=== PATIENT | female | born 1970 | race Caucasian/White ===

== ENCOUNTER 2025-07-17 20:01 | Inpatient (IN) | payer MEDICAID ==
[~2025-07-17] VITALS: Ht 167.6 cm; Wt 81.8 kg
[~2025-07-17 20:01] MED LIST: CYCL-1 PO; HYDR-4383 PO
--- NOTE | 2025-07-17 20:12 | Physician Documentation ---
History of Present Illness ~ Stated Complaint: GI CONSULT Time Seen by MD: 20:03 Primary Medical Doctor: DR. CHATMAN HPI Patient presents to the emergency room as a transfer from [facility] for presumed GI bleed. She had outpatient labs drawn which showed that has significant anemia therefore was referred to the emergency room. She received 2 units of blood at sending facility. She had denies any black stools but has had some red blood while wiping over the past month. She reports history of ulcers. 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 No significant history of alcohol. Medication Reconciliation Allergies: Coded Allergies: NSAIDS (Non-Steroidal Anti-Inflamma (Verified Allergy, Unknown, PT HAD WEIGHT LOSS SURGERY, 11/17/17) Penicillins (Verified Allergy, Unknown, 11/17/17) Scheduled Hydrocodone/Acetaminophen ([place] 5-325 Tablet), 1 TAB PO TID PRN Scheduled PRN Cyclobenzaprine* (Cyclobenzaprine*), 1 TABLET PO Q8H PRN for muscle spasms Past Medical History Past Medical History: Pancreatitis, *RENAL/*, Chronic Pain, Chronic Back Pain Past Surgical History: cholecystectomy, , gastric bypass, orthopedic surgeries Alcohol Use: Rarely Drug Use: none Lives with: Family Lives In: Home Review of Systems ROS All review of systems negative except as per HPI Physical Exam Physical Exam General: Patient is awake, alert, oriented x4 in no acute distress Head: Normocephalic and atraumatic. Eyes: Conjunctival normal. EOMI. PERRL. ENT: Mucous membranes moist. Neck: Supple, trachea is midline. Chest: Clear to auscultation bilaterally without rales, rhonchi, or wheezes. There is no accessory muscle use or retractions. Cardiac: RRR without murmurs, gallops, or rubs. Abd: Soft, nondistended, nontender, with normoactive bowel sounds. No guarding, rebound, or rigidity. Progress Results/Orders Results/Orders Orders - KAI SUTTON MD Cbc/Diff (07/17/25 20:02) Saline Lock (07/17/25 20:02) Type And Screen (07/17/25 20:02) Pantoprazole 40mg/Ns 100ml Bag (Protonix (07/17/25 21:00) Page Hospitalist (07/17/25 20:12) Fill Out Med Reconciliation (07/17/25 20:12) Man Diff (07/17/25 20:15) Completed Orders - KAI SUTTON MD CMP (07/17/25 20:02) Vital Signs 07/17/25 07/17/25 07/17/25 20:03 20:17 20:22 Temp 98.1 98.1 Pulse 80 80 Resp 13 12 B/P (MAP) 108/61 108/61 (77) Pulse Ox 98 96 O2 Flow Rate 0 0 Laboratory Tests Test 07/17/25 20:15 White Blood Count 5.5 Red Blood Count 4.17 L Hemoglobin 7.4 L Hematocrit 24.6 L Mean Corpuscular Volume 58.9 L Mean Corpuscular Hemoglobin 17.8 L Mean Corpuscular Hemoglobin Concent 30.2 L Red Cell Distribution Width 29.3 H Platelet Count 364 Mean Platelet Volume 8.6 Neutrophils (%) (Auto) Lymphocytes (%) (Auto) Monocytes (%) (Auto) Eosinophils (%) (Auto) Basophils (%) (Auto) Neutrophils # (Auto) Lymphocytes # (Auto) Monocytes # (Auto) Eosinophils # (Auto) Basophils # (Auto) CBC Comment Basophilic Stippling Sodium Level 143 Potassium Level 4.1 Chloride Level 108 H Carbon Dioxide Level 29.4 Anion Gap 6 L Blood Urea Nitrogen 10 Creatinine 0.62 Estimated GFR/1.73 m2 > 90 BUN/Creatinine Ratio 16.1 Glucose Level 90 Calcium Level 8.4 L Total Bilirubin 1.8 H Aspartate Amino Transf (AST/SGOT) 20 Alanine Aminotransferase (ALT/SGPT) 20 Alkaline Phosphatase 98 Total Protein 6.5 Albumin 3.2 L Globulin 3.3 Albumin/Globulin Ratio 1.0 L Chemistry Comments Medical Decision Making Additional information obtaine: old records Findings Patient presents to the emergency room as a transfer for possible GI bleed. Repeat hemoglobin that has reassuring compared to previous with 2 units transfused. Hemoccult negative. Diff Dx GI Bleed:Consideration: Include: AE fistula, Angiodysplasia, Bleeding diathesis, Blood loss anemia, Carcinoma, Diverticulosis, Diverticulitis, Eso phageal varicies, Esophagitis, Gastritis, Gastroenteritis, Inflammatory BD, Rajni-Ramsey syndrome, Meckel's diverticulum, PUD, Other Departure Admitted to Inpatient Unit: yes, to hospitalist Impression: Primary Impression: Anemia Referrals: NO PRIMARY CARE PROVIDER (PCP) Signature Scribe Signature: No scribe Attestation: The note accurately reflects work and decisions made by me.Kai Sutton MD 07/17/25 21:52 KAI SUTTON MD Jul 17, 2025 20:12
[2025-07-17 20:31] LABS: MEAN PLATELET VOLUME 8.6 FL (7.4-10.4); RED CELL DISTRIBUTION WIDTH 29.3 % (11.5-14.5)
[2025-07-17 20:40] LABS: CREATININE 0.62 MG/DL (0.40-0.90); TOTAL CARBON DIOXIDE 29.4 MMOL/L (24-32); eCRCL 95 ML/MIN; eGFR > 90 ML/MIN
[2025-07-17] MEDS: pantoprazole 40MG/NS 100ML BAG 100 ML IV SCH (21:25)
[2025-07-17] MEDS ORDERED: magnesium sulf-water 2g/50mL 50 ML IV PRN (21:40)
[2025-07-17] MEDS ORDERED: potassium Cl 40MEQ/1/2NS 520ml 520 ML IV PRN (21:40)
[2025-07-17] MEDS ORDERED: magnesium Cl slow-release 64mg tablet PO PRN (21:40)
[2025-07-17] MEDS ORDERED: magnesium sulf-water 4G/100mL 100 ML IV PRN (21:40)
[2025-07-17] MEDS ORDERED: mag hydrox/Alum hydrox/simeth 30ml oral suspension PO PRN (21:40)
[2025-07-17] MEDS ORDERED: potassium Cl 20 mEq SR tablet PO PRN ×2 (21:40)
[2025-07-17] MEDS ORDERED: magnesium hydroxide 30ml (MOM) UD suspension PO PRN (21:40)
--- NOTE | 2025-07-17 22:01 | HISTORY AND PHYSICAL-Residence ---
History & Physical Providers to CC Resident Creating Document: TOÑOLISSETTEI, WILLIE ~ History of Present Illness Primary Medical Doctor: DR. CHATMAN Reason for Admit\Complaint: GI bleed History of Present Illness 54-year-old female with history of TIA and multiple bleeding ulcers around 10 years ago was transferred from [facility] due to GI bleed. Patient states that she finds red blood on wiping, which has been on and off since a month. She denies rectal pain and hemorrhoids. She is unsure about dark and tarry stool. She states that she thinks it has been on and off dark. She denies alcohol use and over the counter NSAIDs. She never had a colonoscopy. She has a history of bleeding ulcers about 10 years ago when she had an endoscopy and cauterization of the ulcers. She was started on aspirin due to history of TIA, but stopped taking it after getting ulcers. She reports having occasional heartburn, nausea, bloating and decreased appetite. She endorses having occasional palpitations. She denies vomiting, hematemesis, constipation, abdominal pain. She has a history of Rambo-en-Y for weight loss. She denies chest pain, shortness of breath, fever, chills, burning micturition, frequency, urgency. She had a hemoglobin of 5.9 at [facility] and was transfused 2 units of PRBC. She was transferred here for further evaluation. Her PCP is Dr. Nuñez in [facility] She lives with her at home She can ambulate independently Allergies: Coded Allergies: NSAIDS (Non-Steroidal Anti-Inflamma (Verified Allergy, Unknown, PT HAD WEIGHT LOSS SURGERY, 11/17/17) Penicillins (Verified Allergy, Unknown, 11/17/17) Home Medications Home Medications Active [place] 5-325 Tablet (Hydrocodone/Acetaminophen) 1 Each Tablet 1 Tab PO TID PRN 3 Days Cyclobenzaprine* (Cyclobenzaprine HCl) 10 Mg Tablet 1 Tablet PO Q8H PRN Past Medical History Past Medical History TIA Pancreatitis History of multiple bleeding ulcers-underwent endoscopy and cauterization 10 years ago Past Surgical History Surgical History Comment Gastric bypass surgery for weight loss ( Rambo-en-Y ) Orthopedic surgeries Cholecystectomy Past Social History Social History Comment She quit smoking 26 years ago, she used to smoke half pack a day for 5 years She denies alcohol and recreational drug use Her PCP is Dr. uNñez in [facility] She lives with her at home She can ambulate independently Alcohol Use: Rarely Drug Use: None Lives with: Family Lives In: Home ROS ROS Constitutional: Reports lightheadedness, No fever, chills, weight gain or loss Eyes: No pain, erythema, discharge, blurring of vision ENT: No sore throat, epistaxis, tinnitus Cardiovascular: Reports palpitations, No chest pain, syncope, lower extremity edema, paroxysmal nocturnal dyspnea Respiratory: No Shortness of breath and cough, No hemoptysis. Gastrointestinal: Reports hematochezia, patient is unsure about melena, No Abdominal pain, vomiting,nausea,constipation,diarrhea. Normal appetite. Musculoskeletal: No Swelling, pain in bilateral lower legs. Integumentary: No change in skin, hair, nails. No swelling, bruising, abrasions Neurologic: No headache, neck pain, numbness or tingling of the extremities, Psychiatric: No delusions, depression, loss of interest in normal activity or change in sleep pattern, hallucinations, suicidal ideations Endocrine: Reports weakness. No polydipsia, polyuria, change in appetite, heat or cold intolerance, sweating, dry skin Hematological: No bleeding, petechiae, bruising Allergies: No asthma or urticaria Exam Vitals: Vital Signs Date Time Temp Pulse Resp B/P (MAP) Pulse Ox O2 Delivery O2 Flow Rate FiO2 07/17/25 20:22 07/17/25 20:17 98.1 80 12 96 0 General: Awake , alert, and oriented x4, resting comfortably in the bed, in no acute distress HEENT: Atraumatic, normocephalic, EOMI, anicteric sclera ; pale conjunctiva Neck: Trachea midline. Supple, full range of motion, no JVD Cardiac: Regular rhythm, regular rate with no murmurs all over the precordium. Respiratory: Equal breath sounds bilaterally, no tachypnea, no wheezing ,rub or rales, Chest wall is symmetric and without deformity. Gastrointestinal: Abdomen symmetric, non-distended, soft, non-tender, normal bowel sounds x4 quadrant, normoactive, no hepatosplenomegaly Musculoskeletal: No pedal edema, no cyanosis Neurological: Speech is clear, alert, and oriented x 4. Power 5/5 in all extremities, no sensory deficit, deep tendon reflexes normal, cerebellar intact. Cranial nerves II-XII intact. Skin: Warm and dry Diagnostic Data Last Recorded Lab Results: 07/17/25201407/17/252014 Advance Care Planning Advanced Care plannin - 30 Minutes (Full code) Additional Plan Upper vs lower GI bleed Microcytic hypochromic anemia Differential diagnosis: Peptic ulcer, external hemorrhoids, anal fissure Patient denies use of [id number] pain meds and alcohol She has a history of bleeding ulcers around 10 years ago, underwent endoscopy and cauterization Patient never had a colonoscopy She is hemodynamically stable H&H-7.4/24.6 Hb at [facility] was 5.9, Patient received 2 units of PRBC at [facility] Stool occult test was negative Follow up repeat stool occult blood test Follow up iron profile On Protonix drip H&H q.4h Transfuse PRBC if Hb < 7 NPO after midnight We will consult GI in the a.m. History of TIA Patient does not take aspirin, stopped taking it after previous history of ulcers Elevated total bilirubin Total bilirubin is 1.8 Direct bilirubin is 0.3 Alkaline phosphatase is normal Follow up haptoglobin and LDH I spent a total of 18 minutes reviewing various resuscitative measures/ACP with the patient. The patient decided to be full code. Code status: Full code DVT prophylaxis: SCD GI prophylaxis: Protonix drip Pain management: Tylenol p.r.n. Diet/nutrition: Regular diet, NPO after midnight Prognosis: Guarded Disposition: Monitor H&H, NPO after midnight, awaiting GI, Dr. Dominguez recommendations, PT eval and DC plan Resident attestation: The patient note has been reviewed and supervised by senior residents PGY-2/ PGY-3. Patient was seen, examined and discussed with attending physician, Dr. Alda Lundberg MD Internal Medicine resident, PGY-1 Date of Service: Jul 17, 2025 Billing Provider: FRANK SINGER MD Common Visit Codes: [id number] INP/OBS CARE (HIGH) Assessment/Plan Assessment Evaluated th e patient with the help of residents. Discussed the case with them Reviewed notes by Dr.Preeti DE Agree with his assessments and plans I also reviewed patients labs,radiology and notes from other providers. No additional points now . Will continue the present care. DOT LUNDBERG, RES Jul 17, 2025 22:01 FRANK SINGER MD Jul 18, 2025 05:04
[2025-07-17 22:10] LABS: APTT 23 SECONDS (22-32); INR 1.0 INR
[2025-07-17] MEDS ORDERED: NO HOME MEDS (22:20)
[2025-07-17 22:22] LABS: PHOSPHORUS 4.6 MG/DL (2.3-4.5); PRO BRAIN NATRIURETIC PEPTIDE 150 PG/ML (0-125)
[2025-07-17 22:36] LABS: OCCULT BLOOD STOOL NEGATIVE (Neg)
--- NOTE | 2025-07-17 23:02 | ELECTROCARDIOGRAPH REPORT ---
[facility] Test Date: 2025-07-17 Test Time: 22:59:23 Pat Name: ERLIN CORDERO Department: [facility] Patient ID: [id number] Room: [place] [id number] Gender: F Sales Service Assistant: : 1970 Requested By: DOT LUNDBERG Order Number: [id number] Reading MD: Measurements Intervals Justin Rate: 81 P: 69 MI: 153 QRS: -7 QRSD: 104 T: 69 QT: 408 QTc: 474 Interpretive Statements Sinus rhythm Please click the below link to view image of tracing.
[2025-07-17] MEDS: PERFLUTREN PROTEIN-A MICROSPHR (Optison) 0.22 MG/ML 3ML VIAL IV ONE (23:20)
[2025-07-18] VITALS (12 sets, daily range): BP systolic 90–120; BP diastolic 42–69; PULSE 61–81; RESP 11–16; TEMP 97.7–98.5; O2SAT 95–100
[2025-07-18 00:28] LABS: LEUKOCYTE ESTERASE ,URINE NEGATIVE (Neg); NITRITES, URINE NEGATIVE (Neg); OCCULT BLOOD,URINE NEGATIVE (Neg)
[2025-07-18 00:54] LABS: UA COLLECTION TYPE CLN CATCH MIDSTREAM
[2025-07-18 01:06] LABS: % IRON SATURATION 25 % (11-46)
[2025-07-18 02:24] LABS: EOSINOPHILS % (MANUAL) 1.0 % (0-6); LYMPHOCYTES % (MANUAL) 34.0 % (21-51); MONOCYTES % (MANUAL) 7.0 % (2-12); NEUTROPHILS % (MANUAL) 58.0 % (42-75); PLATELET ESTIMATE NORMAL
[2025-07-18 02:26] LABS: ELLIPTOCYTES FEW
[2025-07-18 05:12] LABS: CHOL/HDL RATIO 2.3 (0.00-4.99); CREATININE 0.58 MG/DL (0.40-0.90); LACTATE DEHYDROGENASE 167 U/L (81-234); LDL CHOLESTEROL 71 MG/DL (50-100); TOTAL CARBON DIOXIDE 25.8 MMOL/L (24-32); eCRCL 101 ML/MIN; eGFR > 90 ML/MIN
[2025-07-18 05:24] LABS: MEAN PLATELET VOLUME 8.7 FL (7.4-10.4); RED CELL DISTRIBUTION WIDTH 27.5 % (11.5-14.5)
[2025-07-18 07:10] LABS: EOSINOPHILS % (MANUAL) 4.0 % (0-6); LYMPHOCYTES % (MANUAL) 26.0 % (21-51); MONOCYTES % (MANUAL) 6.0 % (2-12); NEUTROPHILS % (MANUAL) 64.0 % (42-75); PLATELET ESTIMATE NORMAL
[2025-07-18 07:11] LABS: ELLIPTOCYTES FEW; LARGE PLATELETS MODERATE
[2025-07-18] MEDS: K and/or MAG REPLACEMENT MC SCH (07:29)
[2025-07-18] MEDS: docusate sod 100mg capsule PO SCH (07:33)
[2025-07-18 07:50] LABS: MEAN PLATELET VOLUME 8.7 FL (7.4-10.4); RED CELL DISTRIBUTION WIDTH 27.0 % (11.5-14.5)
--- NOTE | 2025-07-18 09:11 | CONSULTATION REPORT - RESIDENT ---
Consult Providers to CC Resident Creating Document: MARTHA SOLANO RES History of Present Illness Reason for Admit\Complaint: Anemia History of Present Illness A 54-year-old female with a history of TIA, Rambo-en-Y gastric bypass and prior bleeding peptic ulcers requiring endoscopic cauterization approximately 10 years ago,was transferred from [facility] for further evaluation of GI bleeding and severe anemia. The patient reports intermittent hematochezia noted as red blood on wiping for approximately one month. She denies rectal pain, known hemorrhoids or anal trauma. She reports that her stools have appeared intermittently dark. She denies hematemesis. She endorses lightheadedness, weakness, occasional heartburn, nausea, bloating and decreased appetite. She denies abdominal pain, vomiting, constipation, diarrhea, chest pain, dyspnea, fever, chills or urinary symptoms. She denies alcohol use, NSAID use or other zrxi-ylj-qoponje analgesics. She was previously started on aspirin for TIA, but discontinued it following her prior episode of bleeding ulcers. She has never undergone colonoscopy. At the outside facility, her hemoglobin was 5.9 g/dL, and she received 2 units of packed red blood cells, with improvement to 7.4 g/dL on arrival to this facility. She is currently hemodynamically stable. Allergies: Coded Allergies: NSAIDS (Non-Steroidal Anti-Inflamma (Verified Allergy, Unknown, PT HAD WEIGHT LOSS SURGERY, 11/17/17) Penicillins (Verified Allergy, Unknown, 11/17/17) Home Medications Home Medications Active Reported No Home Medications (Home Med List) Each Past Medical History Past Medical History Transient ischemic attack (TIA) History of multiple bleeding peptic ulcers (s/p EGD with cauterization ~10 years ago) Pancreatitis Chronic anemia (suspected) Past Surgical History Surgical History Comment Rambo-en-Y gastric bypass for weight loss Cholecystectomy section Orthopedic surgeries Past Social History Social History Comment Former smoker: quit 26 years ago ( pack per day for 5 years) Denies alcohol or recreational drug use Lives with at home Ambulates independently ROS ROS Constitutional: Lightheadedness, weakness; denies fever or weight change Cardiovascular: Palpitations; denies chest pain or edema Respiratory: Denies shortness of breath, cough, hemoptysis Gastrointestinal: Hematochezia, possible intermittent melena; denies abdominal pain, vomiting, diarrhea, constipation Neurologic: Denies focal deficits, numbness, or headaches Hematologic: Denies easy bruising or bleeding Other systems: Negative unless otherwise stated above Exam Vitals: Vital Signs Date Time Temp Pulse Resp B/P (MAP) Pulse Ox O2 Delivery O2 Flow Rate FiO2 07/18/25 08:00 Room Air 0.0 07/18/25 07:57 73 07/18/25 07:52 97.7 16 120/42 (68) 99 General: Vital Signs: Afebrile, hemodynamically stable General: Awake, alert, oriented 4, no acute distress HEENT: Pale conjunctiva, anicteric sclera Neck: Supple, no JVD Cardiovascular: Regular rate and rhythm, Systolic ejection murmur all over the precordium Respiratory: Clear to auscultation bilaterally Abdomen: Soft, non-distended, non-tender, normal bowel sounds, no hepatosplenomegaly Extremities: No edema, cyanosis, or clubbing Neurologic: Non-focal, cranial nerves IIXII intact Skin: Warm, dry, no bruising or petechiae Diagnostic Data Last Recorded Lab Results: 07/18/25 0734 07/18/25 0314 Diagnostic Data: Laboratory Tests Test 07/17/25 20:15 Prothrombin Time 10.7 SECONDS (9.0-12.0) INR International Normalized Ratio 1.0 INR Activated Partial Thromboplast Time 23 SECONDS (22-32) Coagulation Comments Additional Plan Hemoglobin: 7.4 g/dL (after transfusion; prior 5.9 g/dL) Hematocrit: 24.6% MCV: Microcytic Iron studies: Iron: 32 g/dL TIBC: 466 g/dL Transferrin saturation: 7% Ferritin: 9 Stool occult blood: Negative Total bilirubin: 1.8 mg/dL Direct bilirubin: 0.3 mg/dL Alkaline phosphatase: Normal 1.Gastrointestinal Bleeding (Upper vs Lower) 2. Compensated chronic anemia, iron deficiency Anemia 3. Status Post Gastric ByPass Surgery Patient presents with severe anemia and mixed features of possible upper and lower GI bleeding. Risk factors include prior peptic ulcer disease, Rambo-en-Y gastric bypass (risk for marginal ulcers, deficiency from malabsorption) and lack of prior colorectal cancer screening. Possible severe iron deficiency secondary to malabsorption from parietal cell loss from gastric bypass surgery, was achlorhydria leading to iron malabsorption Stool occult blood test is negative; as patient may have intermittent GI bleed or her anemia could be secondary to malabsorption Differential includes: Recurrent peptic or marginal ulcer disease Iron Deficiency from malabsorption Anastomotic ulcer (post-gastric bypass) Colonic neoplasm or polyps Angiodysplasia Less likely hemorrhoids or anal fissure (no rectal pain) Plan: Continue Protonix drip NPO for EGD today Monitor H&H every 4 hours Transfuse PRBCs for hemoglobin <7 g/dL or symptomatic anemia Plan for EGD today Plan for colonoscopy tomorrow Bowel prep with GoLYTELY ordered NPO after midnight Avoid NSAIDs and antiplatelet agents unless absolutely indicated 2.Severe Microcytic Hypochromic Anemia Likely secondary to chronic blood loss, iron deficiency. Plan: Low ferritin, low iron and high TIBC Trend CBC IV iron replacement ordered 3.History of Rambo-en-Y Gastric Bypass Increases risk for marginal ulcers, which may be difficult to diagnose and may require careful endoscopic evaluation Also may be a reason for iron malabsorption secondary to fentanyl cell loss from antrectomy during gastric bypass surgery 4.Mild Indirect Hyperbilirubinemia Possibly related to hemolysis vs resorption after transfusion. Plan: Follow up LDH and haptoglobin Trend liver function tests 5.History of TIA Currently not on antiplatelet therapy due to prior bleeding history. Plan: Reassess antiplatelet therapy after stabilization Code Status: Full code DVT Prophylaxis: SCDs GI Prophylaxis: Protonix drip Disposition: Continue inpatient monitoring, await endoscopic evaluation Martha Solnao MD Internal Medicine Resident, PGY-2 Date of Service: Jul 18, 2025 Billing Provider: BENEDICT VICK MD, GAURAV, RES Jul 18, 2025 09:11
[2025-07-18 09:25] LABS: % IRON SATURATION 7 % (11-46)
[2025-07-18 11:42] LABS: MEAN PLATELET VOLUME 8.8 FL (7.4-10.4); RED CELL DISTRIBUTION WIDTH 28.1 % (11.5-14.5)
[2025-07-18] MEDS ORDERED: propofol 1000mg/100ml bottle 100 ML IV ONE (13:29)
[2025-07-18] MEDS: PEG 3350/Na sulf,bicarb,Cl/KCl oral sol 4 liter bottle PO ONE (15:03)
[2025-07-18 16:58] LABS: MEAN PLATELET VOLUME 8.7 FL (7.4-10.4); RED CELL DISTRIBUTION WIDTH 27.5 % (11.5-14.5)
--- NOTE | 2025-07-18 20:18 | PROGRESS NOTE ---
Daily Progress Note Providers to CC ~ Antibiotic Timeout Antibiotic Ordered?: No Subjective The patient's hemoglobin has stabilized in his found that the patient has iron- deficiency and IV iron was ordered, the patient is status post EGD that has a biopsy obtained however there this was a normal EGD the patient is scheduled for colonoscopy in the a.m.. The patient has not no acute complaints currently Objective Vital Signs Date Time Temp Pulse Resp B/P (MAP) Pulse Ox O2 Delivery O2 Flow Rate FiO2 07/18/25 18:00 98.5 81 14 102/53 (69) 100 Room Air 07/18/25 14:40 2.0 Result Diagram: 07/18/25 1625 07/18/25 0314 Gen. No acute distress alert and oriented 4 Lungs clear to ascultation bilaterally, no wheezes rales or rhonchi appreciated Heart normal sinus rhythm no murmurs rubs or clicks noted Abdomen soft nontender bowel sounds are normoactive Lower extremities no clubbing cyanosis, nor edema appreciated bilaterally Coagulation Studies Laboratory Tests Test 07/17/25 20:15 Prothrombin Time 10.7 SECONDS (9.0-12.0) INR International Normalized Ratio 1.0 INR Activated Partial Thromboplast Time 23 SECONDS (22-32) Coagulation Comments Problem\Assessment\Plan Problems/Diagnosis: (1) Anemia # Microcytic hypochromic anemia # GI bleed Status post EGD- biopsy was obtained however the EGD was normal Dr Dominguez is taking the patient for colonoscopy tomorrow bowel prep was started Iron-deficiency and is receiving IV iron # history of TIA and a longer on aspirin due to prior gastric ulcers Date of Service: Jul 18, 2025 Billing Provider: CASTILLO RENNER DO Common Visit Codes: [id number] INP/OBS CARE(HIGH) CASTILLO RENNER DO Jul 18, 2025 20:18
[2025-07-18] MEDS: ondansetron/PF 4mg/2ml inj IV PRN (20:58)
[2025-07-18 22:02] LABS: MEAN PLATELET VOLUME 8.6 FL (7.4-10.4); RED CELL DISTRIBUTION WIDTH 28.5 % (11.5-14.5)
[2025-07-19] VITALS (11 sets, daily range): BP systolic 98–113; BP diastolic 38–68; PULSE 54–67; RESP 12–18; TEMP 97.6–98.3; O2SAT 95–100
[2025-07-19] MEDS: polyethylene glycol 3350 17gm powd pack PO SCH (02:23)
[2025-07-19 03:19] LABS: MEAN PLATELET VOLUME 8.5 FL (7.4-10.4); RED CELL DISTRIBUTION WIDTH 27.9 % (11.5-14.5)
[2025-07-19 03:33] LABS: CREATININE 0.63 MG/DL (0.40-0.90); TOTAL CARBON DIOXIDE 27.6 MMOL/L (24-32); eCRCL 93 ML/MIN; eGFR > 90 ML/MIN
[2025-07-19 04:13] LABS: EOSINOPHILS % (MANUAL) 5.0 % (0-6); LYMPHOCYTES % (MANUAL) 41.0 % (21-51); MONOCYTES % (MANUAL) 6.0 % (2-12); NEUTROPHILS % (MANUAL) 48.0 % (42-75); PLATELET ESTIMATE NORMAL
[2025-07-19] MEDS ORDERED: polyethylene glycol 3350 17gm powd pack PO ONE (06:23)
[2025-07-19 07:32] LABS: MEAN PLATELET VOLUME 8.5 FL (7.4-10.4); RED CELL DISTRIBUTION WIDTH 27.9 % (11.5-14.5)
[2025-07-19] MEDS: PEG 3350/Na sulf,bicarb,Cl/KCl oral sol 4 liter bottle PO ONE (11:20)
[2025-07-19] MEDS: sodium ferric gluc complex inj 250 MG in normal saline 100ml IV soln 100 ML IV SCH (11:20)
[2025-07-19 14:47] LABS: MEAN PLATELET VOLUME 8.7 FL (7.4-10.4); RED CELL DISTRIBUTION WIDTH 31.4 % (11.5-14.5)
--- NOTE | 2025-07-19 16:05 | PROGRESS NOTE- Residence ---
Progress Note - Resident Providers to CC Resident Creating Document: MARTHA RO RES ~ Antibiotic Timeout Antibiotic Ordered?: No Subjective Patient was seen and examined at bedside, hemoglobin trended down to 6.8, received 2 units of PRBC transfusion today. Patient did not undergo colonoscopy today in view of inadequate bowel prep; possible colonoscopy tomorrow in a.m.. Objective Vital Signs Date Time Temp Pulse Resp B/P (MAP) Pulse Ox O2 Delivery O2 Flow Rate FiO2 07/19/25 13:35 55 16 100/54 07/19/25 09:35 97.9 07/19/25 08:00 Room Air 0.0 07/19/25 05:32 96 Result Diagram: 07/19/25 1425 07/19/25 0255 Vital Signs: Afebrile, hemodynamically stable General: Awake, alert, oriented 4, no acute distress HEENT: Pale conjunctiva, anicteric sclera Neck: Supple, no JVD Cardiovascular: Regular rate and rhythm, Systolic ejection murmur all over the precordium Respiratory: Clear to auscultation bilaterally Abdomen: Soft, non-distended, non-tender, normal bowel sounds, no hepatosplenomegaly Extremities: No edema, cyanosis, or clubbing Neurologic: Non-focal, cranial nerves IIXII intact Skin: Warm, dry, no bruising or petechiae Coagulation Studies Laboratory Tests Test 07/17/25 20:15 Prothrombin Time 10.7 SECONDS (9.0-12.0) INR International Normalized Ratio 1.0 INR Activated Partial Thromboplast Time 23 SECONDS (22-32) Coagulation Comments Advance Care Planning Advanced Care plannin - 30 Minutes Assessment Assessment Evaluated th e patient with the help of residents. Discussed the case with them Reviewed notes by Dr.Preeti DE Agree with his assessments and plans I also reviewed patients labs,radiology and notes from other providers. No additional points now . Will continue the present care. Plan Plan 1.Gastrointestinal Bleeding (Upper vs Lower) 2. Compensated chronic anemia, iron deficiency Anemia 3. Status Post Gastric ByPass Surgery Patient presents with severe anemia and mixed features of possible upper and lower GI bleeding. Risk factors include prior peptic ulcer disease, Rambo-en-Y gastric bypass (risk for marginal ulcers, deficiency from malabsorption) and lack of prior colorectal cancer screening. Possible severe iron deficiency secondary to malabsorption from parietal cell loss from gastric bypass surgery, was achlorhydria leading to iron malabsorption Stool occult blood test is negative; as patient may have intermittent GI bleed or her anemia could be secondary to malabsorption Differential includes: Recurrent peptic or marginal ulcer disease Iron Deficiency from malabsorption Anastomotic ulcer (post-gastric bypass) Colonic neoplasm or polyps Angiodysplasia Less likely hemorrhoids or anal fissure (no rectal pain) Plan: Continue Protonix drip NPO for EGD today Monitor H&H every 4 hours Transfuse PRBCs for hemoglobin <7 g/dL or symptomatic anemia Plan for EGD today Plan for colonoscopy tomorrow Bowel prep with GoLYTELY ordered NPO after midnight Avoid NSAIDs and antiplatelet agents unless absolutely indicated 07/19/25: Patient had EGD on 07/17 which was unremarkable Recommend to continue PPI therapy No major GI bleed source was found Monitor H&H regularly Hemoglobin trended down to 6.8 today in a.m. Received 2 units of PRBC transfusion Patient was scheduled for colonoscopy today, but due to inadequate bowel prep, colonoscopy was not performed GoLYTELY to be continued until stools are clear Colonoscopy tomorrow in a.m. NPO after midnight 2.Severe Microcytic Hypochromic Anemia Likely secondary to chronic blood loss, iron deficiency. Plan: Low ferritin, low iron and high TIBC Trend CBC IV iron replacement to be continued 3.History of Rambo-en-Y Gastric Bypass Endoscopy did not show any marginal ulcers Also may be a reason for iron malabsorption secondary to parietal cell loss from antrectomy during gastric bypass surgery 4.History of TIA Currently not on antiplatelet therapy due to prior bleeding history. Plan: Reassess antiplatelet therapy after stabilization Code Status: Full code DVT Prophylaxis: SCDs GI Prophylaxis: Protonix Disposition: Continue inpatient monitoring, await colonoscopy evaluation Martha oR MD Internal Medicine Resident, PGY-2 Date of Service: Jul 19, 2025 Billing Provider: BENEDICT VICK MD,MARTHA, RES Jul 19, 2025 16:05
--- NOTE | 2025-07-19 19:59 | PROGRESS NOTE ---
Daily Progress Note Providers to CC ~ Antibiotic Timeout Antibiotic Ordered?: No Subjective The patient has dropped her hemoglobin was 6.8 today and I ordered a 1 unit of packed red blood cells to be transfused the pain hemoglobin this afternoon was 8.5- the patient has iron-deficiency and Venofer started. The patient was to go for his colonoscopy today however the bowel prep was incomplete stool was still brownish color and additional bowel preps were ordered Objective Vital Signs Date Time Temp Pulse Resp B/P (MAP) Pulse Ox O2 Delivery O2 Flow Rate FiO2 07/19/25 18:00 98.3 57 16 101/38 (59) 98 Room Air 07/19/25 08:00 0.0 Result Diagram: 07/19/25 1425 07/19/25 0255 Gen. No acute distress alert and oriented 4 Lungs clear to ascultation bilaterally, no wheezes rales or rhonchi appreciated Heart normal sinus rhythm no murmurs rubs or clicks noted Abdomen soft nontender bowel sounds are normoactive Lower extremities no clubbing cyanosis, nor edema appreciated bilaterally Coagulation Studies Laboratory Tests Test 07/17/25 20:15 Prothrombin Time 10.7 SECONDS (9.0-12.0) INR International Normalized Ratio 1.0 INR Activated Partial Thromboplast Time 23 SECONDS (22-32) Coagulation Comments Problem\Assessment\Plan Problems/Diagnosis: (1) Anemia # Microcytic hypochromic anemia # GI bleed Status post EGD- biopsy was obtained however the EGD was normal Dr Dominguez is taking the patient for colonoscopy tomorrow bowel prep was started Iron-deficiency and is receiving IV iron 07/19 hemoglobin dropped to 6.8 today and a unit of packed red blood cells were ordered- repeat afternoon lab hemoglobin was 8.5 # history of TIA and a longer on aspirin due to prior gastric ulcers Date of Service: Jul 19, 2025 Billing Provider: CASTILLO RENNER DO Common Visit Codes: [id number] INP/OBS CARE(HIGH) CASTILLO RENNER DO Jul 19, 2025 19:59
[2025-07-19 22:34] LABS: MEAN PLATELET VOLUME 8.7 FL (7.4-10.4); RED CELL DISTRIBUTION WIDTH 30.9 % (11.5-14.5)
[2025-07-20] VITALS (10 sets, daily range): BP systolic 95–118; BP diastolic 44–77; PULSE 46–83; RESP 9–16; TEMP 97.8–98.1; O2SAT 95–99
[2025-07-20 02:19] LABS: MEAN PLATELET VOLUME 9.0 FL (7.4-10.4); RED CELL DISTRIBUTION WIDTH 30.9 % (11.5-14.5)
[2025-07-20 05:47] LABS: MEAN PLATELET VOLUME 8.7 FL (7.4-10.4); RED CELL DISTRIBUTION WIDTH 31.5 % (11.5-14.5)
[2025-07-20 06:00] LABS: CREATININE 0.65 MG/DL (0.40-0.90); TOTAL CARBON DIOXIDE 27.7 MMOL/L (24-32); eCRCL 90 ML/MIN; eGFR > 90 ML/MIN
[2025-07-20 09:17] LABS: EOSINOPHILS % (MANUAL) 2.0 % (0-6); LYMPHOCYTES % (MANUAL) 34.0 % (21-51); MONOCYTES % (MANUAL) 11.0 % (2-12); NEUTROPHILS % (MANUAL) 53.0 % (42-75)
[2025-07-20 09:18] LABS: PLATELET ESTIMATE NORMAL
[2025-07-20 09:19] LABS: ELLIPTOCYTES FEW
[2025-07-20] MEDS ORDERED: midazolam 1 mg/ML 2ml injection ONE (09:42)
[2025-07-20] MEDS ORDERED: propofol inj 20 ML IV ONE ×2 (09:43→09:58)
[2025-07-20] MEDS ORDERED: fentaNYL/PF 50MCG/1 ML 2ML syringe ONE ×2 (09:52→09:57)
[2025-07-20] MEDS ORDERED: VITC500T PO (12:37)
[2025-07-20] MEDS ORDERED: FERR325T32 PO (12:37)
[2025-07-20 13:34] LABS: MEAN PLATELET VOLUME 8.8 FL (7.4-10.4); RED CELL DISTRIBUTION WIDTH 31.3 % (11.5-14.5)
--- NOTE | 2025-07-20 20:36 | DISCHARGE SUMMARY ---
Discharge Summary Providers to CC ~ Discharge Summary Admission Diagnosis: GI BLEED Hospital Course DATE OF ADMISSION: 07/17/2025 DATE OF DISCHARGE: 07/20/2025 Discharge Diagnosis\\Comment: Microcytic anemia GI bleed History of TIA Operations\\Procedures: EGD with biopsy, colonoscopy with biopsy Consultants: Dr. Dominguez digital manager Complications: None Condition on DC: Stable New Medications: Ascorbic Acid* (Vitamin C*) 500 Mg Tablet 1 TAB PO Q12H for 30 Days, #60 TAB Ferrous Sulfate (Ferrous Sulfate) 325 Mg (65 Mg Iron) Tablet 1 TAB PO Q12H for 30 Days, #60 TAB Discontinued Medications: Home Med List (No Home Medications) Each Discharge Summary: The patient was admitted by resident physician DOT Valle , under the supervision of FRANK Wiley MD with the following HPI:" 54-year-old female with history of TIA and multiple bleeding ulcers around 10 years ago was transferred from [facility] due to GI bleed. Patient states that she finds red blood on wiping, which has been on and off since a month. She denies rectal pain and hemorrhoids. She is unsure about dark and tarry stool. She states that she thinks it has been on and off dark. She denies alcohol use and over the counter NSAIDs. She never had a colonoscopy. She has a history of bleeding ulcers about 10 years ago when she had an endoscopy and cauterization of the ulcers. She was started on aspirin due to history of TIA, but stopped taking it after getting ulcers. She reports having occasional heartburn, nausea, bloating and decreased appetite. She endorses having occasional palpitations. She denies vomiting, hematemesis, constipation, abdominal pain. She has a history of Rambo-en-Y for weight loss. She denies chest pain, shortness of breath, fever, chills, burning micturition, frequency, urgency. She had a hemoglobin of 5.9 at [facility] and was transfused 2 units of PRBC. She was transferred here for further evaluation." The patient received IV Venofer iron her iron studies demonstrated a serum iron level of 32 and a% saturation 7 TIBC of 466. The patient is hemoglobin on presentation to [facility] was 7.4 the hemoglobin did drop to 6.8 in the morning of the the patient was transfused an additional unit of packed red blood cells and her hemoglobin remained stable on the day discharge was 8.4. The patient has a EGD which was unremarkable biopsy was obtained and the patient has a colonoscopy which demonstrated nonbleeding internal hemorrhoids which were biopsied. I informed the patient is that is hemorrhoids may has been bleeding and may bleed in the future in his this becomes significant then the patient may require surgical consult. The patient is to follow up with Dr. Dominguez digital manager in two weeks I did inform the patient she needs to obtain yearly labs in regards to to her prior Rambo-en-Y gastric bypass I did discharge the patient with iron sulfate 325 mg b.i.d. as well as cervical acid 500 mg b.i.d. and I informed her if this is not covered by your insurance she can buy [id number] iron and vitamin-C. I recommended the patient get a CBC in one-week Gen. No acute distress alert and oriented 4 Lungs clear to ascultation bilaterally, no wheezes rales or rhonchi appreciated Heart normal sinus rhythm no murmurs rubs or clicks noted Abdomen soft nontender bowel sounds are normoactive Lower extremities no clubbing cyanosis, nor edema appreciated bilaterally The patient felt ready to be discharged and was medically cleared to be discharged on 07/20/2025 The patient was seen and evaluated on day of discharge. Time spent on discharge 35 minutes *Problems/Diagnosis: (1) Anemia Status: Acute Total Time Spent on D/C: > 30 Minutes Date of Service: Jul 20, 2025 Billing Provider: CASTILLO RENNER DO Common Visit Codes: 50828-AQJ/OBS DISCH DAY >30min CASTILLO RENNER DO Jul 20, 2025 20:36
== END 2025-07-20 14:20 | disposition home or self-care (01) | DRG 254 ==
LOC: ER 20:02 → ED HOLD 21:16 → EDBEDREQ 07-18 04:42 → ORTHO 4S 07-18 07:22
PROVIDERS: ADMIT Internal Medicine Critical Care Medicine; ATTEND Family Medicine
PROC: 0DB68ZX Excision of Stomach, Via Natural or Artificial Opening Endoscopic, Diagnostic (ICD-10-PCS; principal; 2025-07-18 13:53)
PROC: 30233N1 Transfusion of Nonautologous Red Blood Cells into Peripheral Vein, Percutaneous Approach (ICD-10-PCS; 2025-07-19)
PROC: 0DJD8ZZ Inspection of Lower Intestinal Tract, Via Natural or Artificial Opening Endoscopic (ICD-10-PCS; 2025-07-20)
DX: K92.1 Melena (principal); Q43.8 Other specified congenital malformations of intestine; D50.8 Other iron deficiency anemias; K64.8 Other hemorrhoids; Z86.73 Personal history of transient ischemic attack (TIA), and cerebral infarction without residual deficits; Z98.84 Bariatric surgery status
CPT/HCPCS: 36415; 36430; 43239; 45378; 80048; 80053; 80061; 81003; 82248; 82272; 82607; 82728; 83010; 83036; 83540; 83550; 83615; 83735; 83880; 84100; 84466; 85007; 85025; 85027; 85610; 85730; 86885; 86900; 86901; 86920; 87081; 93005; 99285; A4615; A4620; A6258; A6446; A6449; G0378; J2250; J2405; J2470; J2704; J2916; J3010; J7120; P9016